=== PATIENT | male | born 1955 | race Caucasian/White ===

== ENCOUNTER 2020-06-04 22:14 | Emergency (ER) | payer MEDICARE ==
[~2020-06-04] VITALS: Ht 185.4 cm; Wt 118.0 kg
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
[2020-06-04 22:41] LABS: BASOPHILS % (AUTO) 0.3 % (0-1); EOSINOPHILS # (AUTO) 0.2 X10'3 (0-0.9); EOSINOPHILS % (AUTO) 2.3 % (0-6); HEMATOCRIT 43.8 % (42.0-52.0); HEMOGLOBIN 14.7 g/dl (14.0-17.9); LYMPHOCYTES # (AUTO) 3.3 X10'3 (1.1-4.8); LYMPHOCYTES % (AUTO) 42.5 % (21-51); MEAN CORPUSCULAR HEMOGLOBIN 32.9 PG (27.0-31.0); MEAN CORPUSCULAR HGB CONC 33.6 g/dL (33.0-36.5); MEAN PLATELET VOLUME 8.5 FL (7.4-10.4); MONOCYTES % (AUTO) 12.6 % (2-12); NEUTROPHILS # (AUTO) 3.3 X10'3 (1.8-7.7); NEUTROPHILS % (AUTO) 42.3 % (42-75); PLATELET COUNT 152 X10'3 (140-440); RED BLOOD COUNT 4.47 X10'6 (4.70-6.10); RED CELL DISTRIBUTION WIDTH 13.2 % (11.5-14.5); WHITE BLOOD COUNT 7.7 X10'3 (4.5-11.0)
[2020-06-04] MEDS ORDERED: iohexol 350MG/ML 100ml bottle IV ONE (22:49)
[2020-06-04] MEDS ORDERED: CEPH-572 PO (23:38)
[2020-06-04] MEDS ORDERED: cephalexin 250mg capsule PO ONE (23:45)
--- NOTE | 2020-06-05 00:14 | NUR ---
CALLED JIMMY TO [facility].
[2020-06-05 00:36] VITALS: BP 125/80
== END 2020-06-05 00:10 | disposition home or self-care (01) ==
LOC: ER 22:15
DX: S71.132A Puncture wound without foreign body, left thigh, initial encounter (principal); M79.652 Pain in left thigh; Z79.2 Long term (current) use of antibiotics; X58.XXXA Exposure to other specified factors, initial encounter; Y93.89 Activity, other specified; Y92.89 Other specified places as the place of occurrence of the external cause; Y99.8 Other external cause status
CPT/HCPCS: 36415; 72191; 80320; 85025; 86885; 86900; 86901; 99285; Q9967

== ENCOUNTER 2020-06-06 16:21 | Emergency (ER) | payer MEDICARE, OTHER ==
[~2020-06-06] VITALS: Ht 185.4 cm; Wt 118.0 kg
[~2020-06-06 16:21] MED LIST: CEPH-572 PO
[2020-06-06 16:29] VITALS: BP 147/77
== END 2020-06-06 17:47 | disposition home or self-care (01) ==
LOC: ER 16:22
DX: S71.132D Puncture wound without foreign body, left thigh, subsequent encounter (principal); Z72.89 Other problems related to lifestyle; Z79.899 Other long term (current) drug therapy; W34.00XD Accidental discharge from unspecified firearms or gun, subsequent encounter
CPT/HCPCS: 99281

== ENCOUNTER 2021-06-18 10:00 | Emergency (ER) | payer MEDICARE, OTHER ==
[~2021-06-18] VITALS: Ht 182.9 cm; Wt 122.7 kg
[2021-06-18 10:56] LABS: BASOPHILS % (AUTO) 0.3 % (0-1); EOSINOPHILS % (AUTO) 0.6 % (0-6); HEMATOCRIT 47.6 % (42.0-52.0); HEMOGLOBIN 16.2 g/dl (14.0-17.9); LYMPHOCYTES # (AUTO) 1.5 X10'3 (1.1-4.8); LYMPHOCYTES % (AUTO) 17.8 % (21-51); MEAN CORPUSCULAR HEMOGLOBIN 32.8 PG (27.0-31.0); MEAN CORPUSCULAR VOLUME 96.5 FL (78-98); MEAN PLATELET VOLUME 8.6 FL (7.4-10.4); MONOCYTES % (AUTO) 11.8 % (2-12); NEUTROPHILS # (AUTO) 5.8 X10'3 (1.8-7.7); NEUTROPHILS % (AUTO) 69.5 % (42-75); PLATELET COUNT 163 X10'3 (140-440); RED BLOOD COUNT 4.93 X10'6 (4.70-6.10); RED CELL DISTRIBUTION WIDTH 13.7 % (11.5-14.5); WHITE BLOOD COUNT 8.3 X10'3 (4.5-11.0)
[2021-06-18] MEDS ORDERED: predniSONE 20 mg tablet PO ONE (11:55)
[2021-06-18] MEDS ORDERED: triamcinolone acetonide 40mg/ml inj IM ONE (11:55)
[2021-06-18] MEDS ORDERED: colchicine 0.6mg tablet PO ONE ×2 (11:55→12:55)
[2021-06-18] MEDS ORDERED: CEPH500C2 PO (12:47)
[2021-06-18] MEDS ORDERED: HYDR-3965 PO (12:47)
[2021-06-18 14:26] VITALS: BP 111/80
== END 2021-06-18 14:28 | disposition home or self-care (01) ==
LOC: ER 10:00
DX: M10.9 Gout, unspecified (principal); M79.672 Pain in left foot; I48.91 Unspecified atrial fibrillation; I50.9 Heart failure, unspecified; Z72.89 Other problems related to lifestyle; Z79.2 Long term (current) use of antibiotics; Z79.899 Other long term (current) drug therapy
CPT/HCPCS: 36415; 73630; 84550; 85025; 85651; 96372; 99284; J3301; J7512

== ENCOUNTER 2021-11-30 17:32 | Emergency (ER) | payer MEDICARE, OTHER ==
[~2021-11-30] VITALS: Ht 185.4 cm; Wt 121.2 kg
[2021-11-30] MEDS ORDERED: ketorolac trometh. 30mg/ml inj. IM ONE (20:20)
[2021-11-30] MEDS ORDERED: dexamethasone sod phosphate 10mg/ml inj IM STA (20:20)
[2021-11-30] MEDS ORDERED: PRED20TA PO (20:22)
[2021-11-30] MEDS ORDERED: CEPH-585 PO (20:22)
[2021-11-30 20:57] VITALS: BP 114/84
== END 2021-11-30 20:58 | disposition home or self-care (01) ==
LOC: ER 17:32
DX: I82.401 Acute embolism and thrombosis of unspecified deep veins of right lower extremity (principal); M10.9 Gout, unspecified; I50.9 Heart failure, unspecified; Z79.899 Other long term (current) drug therapy
CPT/HCPCS: 96372; 99284; J1100; J1885